=== PATIENT | female | born 1970 | race Caucasian/White ===

== ENCOUNTER → 2017-04-27 12:17 | Outpatient (CLI) | payer BC, SELFPAY ==
--- NOTE | 2017-04-27 12:18 | US_ITS ---
STUDY: RENAL ULTRASOUND - COMPLETE REASON FOR EXAM: Female, 47 years old. Right flank pain. TECHNIQUE: Ultrasound evaluation of the kidneys was performed with real-time and static stephenson-scale imaging. COMPARISON: None. FINDINGS: RIGHT KIDNEY: Normal location of the right kidney, which is normal in size. The right kidney measures 10.5 x 4.8 x 5.4 cm. There is a normal cortex of the right kidney. The renal cortex measures 1.6 cm. There is no right renal mass or cyst. There are no right renal calculi. There is no right hydronephrosis. DISTAL RIGHT URETER: There is non-visualization of the distal right ureter. There is no demonstrated right ureterovesical junction calculus. There is no demonstrated right ureteral jet. LEFT KIDNEY: Normal location of the left kidney, which is normal in size. The left kidney measures 10.8 x 4.7 x 6.0 cm. There is a normal cortex of the left kidney. The renal cortex measures 1.5 cm. There is no left renal mass or cyst. There are no left renal calculi. There is no left hydronephrosis. DISTAL LEFT URETER: There is non-visualization of the distal left ureter. There is no demonstrated left ureterovesical junction calculus. There is no demonstrated left ureteral jet. BLADDER: The urinary bladder has a volume of 116 ml. There is a normal wall thickness of the distended urinary bladder. There is no demonstrated mass within the urinary bladder. There are no demonstrated bladder calculi. US/Kidney and Bladder IMPRESSION: Normal ultrasound of the kidneys and urinary bladder. Electronically Signed: Lenard Bose MD at 15:50 EST , Service support ,
== END ==
PROVIDERS: Family Provider Internal Medicine; PCP Internal Medicine; Visit Provider Internal Medicine
DX: R10.9 Unspecified abdominal pain (principal)
CPT/HCPCS: 76770

== ENCOUNTER → 2017-07-08 08:21 | Outpatient (CLI) | payer BC, SELFPAY ==
--- NOTE | 2017-07-08 08:24 | US_ITS ---
STUDY: ABDOMINAL ULTRASOUND - RIGHT UPPER QUADRANT REASON FOR VISIT: Female, 47 years old. Vertebral quadrant pain for 2 years, worsened in last 3 months. TECHNIQUE: Ultrasound evaluation of the right upper quadrant was performed with real-time and static rosales-scale imaging. TECHNICAL QUALITY: Adequate. COMPARISON: Bilateral renal ultrasound April 27, 2017; right upper quadrant ultrasound January 16, 2014. FINDINGS: Liver: The liver measures 15.7 cm. There is increased echogenicity consistent with fatty infiltration. The bile ducts are within normal limits. There is hepatic color flow. The direction of portal flow is hepatopetal. There is no demonstrated mass lesion. Gallbladder: Normal distended gallbladder. The gallbladder wall measures 2.6 mm. There is a negative sonographic Ann's sign. There is no pericholecystic fluid. There are no gallstones. Common Bile Duct (C.B.D.): The common bile duct measures 4.3 mm. Pancreas: Normal size of the head, body and tail of the pancreas. There is increased echogenicity of the pancreas. There is no demonstrated pancreatic mass or cyst. Right Kidney: Normal size of the right kidney. The right kidney measures 10.5 x 5.0 x 4.4 cm. Normal renal cortex. The right cortex measures 1.5 cm. There is no demonstrated renal mass or cyst. 3 mm hyperechogenicity at the upper pole may be a nonobstructing stone, although there is no posterior acoustic shadowing. There is no right hydronephrosis. US/Abdomen Limited IMPRESSION: 1. Stable fatty infiltration of the liver and pancreas. 2. No gallstones or signs of cholecystitis. 3. Possible 3 mm nonobstructing stone versus hyperechogenicity of other etiology at the upper pole of the right kidney. No right hydronephrosis. Electronically Signed: Ant Roper MD at 16:15 EDT , Service support ,
== END ==
PROVIDERS: Family Provider Internal Medicine; PCP Internal Medicine; Visit Provider Family Medicine
DX: R10.11 Right upper quadrant pain (principal)
CPT/HCPCS: 76705

== ENCOUNTER → 2019-01-12 15:58 | Outpatient (CLI) | payer OTHER, SELFPAY ==
[2019-01-12 17:59] LABS: Estradiol 34.1 pg/mL; Free T3 2.3 pg/mL (2.18-3.98); T4 Free Direct 0.77 ng/dL (0.76-1.46); Thyroid Stim Hormone (TSH) 1.73 uIU/mL (0.358-3.74)
[2019-01-12 18:01] LABS: Progesterone Level 0.27 ng/mL (See Comment)
[2019-01-15 16:24] LABS: DHEA Sulfate 229.2 ug/dL (41.2-243.7)
== END ==
PROVIDERS: Family Provider Family Medicine; PCP Family Medicine; Referring Provider Specialist; Visit Provider Specialist
DX: N95.1 Menopausal and female climacteric states (principal); R53.81 Other malaise; E03.8 Other specified hypothyroidism
CPT/HCPCS: 36415; 82627; 82670; 84144; 84403; 84439; 84443; 84481; 82626

== ENCOUNTER → 2019-03-01 08:18 | Outpatient (CLI) | payer OTHER, SELFPAY ==
--- NOTE | 2019-03-01 08:23 | US_ITS ---
HISTORY: RT SIDED PAIN STEATOSIS TECHNIQUE: Moreno scale and color doppler imaging was performed of the pancreas, liver, and gallbladder. COMPARISON: Previous right upper quadrant ultrasound is from July 08, 2017. An additional right upper quadrant ultrasound is from January 16, 2014 FINDINGS: # of images incl. paperwork: 133 The liver is enlarged and coarse in echotexture consistent with hepatic steatosis. The liver is measured at 17 cm in craniocaudal dimensions. No gallstones, gallbladder wall thickening or biliary dilatation. Gallbladder wall measures 2 mm. Common bile duct measures 4 mm. No tenderness upon insonation the gallbladder. Visualized pancreas is normal in appearance. Right kidney is normal in size. An echogenic shadowing structure within the right kidney may be a 3 x 3 mm nonobstructing nephrolith. Visualized abdominal aorta has normal caliber. IVC is patent. Hepatopedal flow is present within the central portal vein. US/Abdomen Limited IMPRESSION: Normal Right upper quadrant ultrasound. at 2123 Reported and signed by: Darrell Resendiz MD Electronically Signed: Darrell Resendiz MD at 21:28 EST Tel , Service support ,
== END ==
PROVIDERS: Family Provider Family Medicine; PCP Family Medicine
DX: K76.0 Fatty (change of) liver, not elsewhere classified (principal); R10.11 Right upper quadrant pain
CPT/HCPCS: 76705

== ENCOUNTER → 2019-05-02 10:51 | Outpatient (CLI) | payer OTHER, SELFPAY ==
[2019-05-02 12:19] LABS: Absolute Lymphocyte Count 1.38 X10^3/uL (0.83-4.51); Absolute Neutrophil Count 1.5 X10^3/uL (2.0-7.7); Basophil# 0.04 X10^3/uL; Basophil% 1.1 % (0-1); Eosinophil# 0.09 X10^3/uL; Eosinophils% 2.5 % (0-5); Hematocrit 41.2 % (37-47); Hemoglobin 13.8 g/dL (12.0-15.0); Lymphocyte # 1.38 X10^3/ul (4.0); Lymphocyte % 39.1 % (19-41); Mean Corp Hgb Conc 33.5 g/dL (32-36); Mean Corpuscular Hgb 33.4 pg (27.0-32.0); Mean Corpuscular Volume 99.8 fL (81-99); Mean Platelet Vol. 9.7 fl (6.2-12.0); Monocyte# 0.54 X10^3/uL; Monocyte% 15.3 % (0-10); NRBC Flagged by Analyzer 0 % (0-5); Neutrophil # 1.47 X10^3/uL (2.7-7.7); Neutrophil % 41.7 % (47-70); Platelet Count 232 K/mm3 (150-450); RBC Distribution Width SD 44.3 fl (35.1-43.9); Red Blood Count 4.13 M/mm3 (4.2-5.4); White Blood Count 3.5 K/mm3 (4.4-11.0)
[2019-05-02 12:32] LABS: Prothrombin Time (Protime)PT. 13.1 SECONDS (11.7-14.9)
[2019-05-02 12:39] LABS: ALB/GLOB Ratio 1.1 RATIO (0.9-2.4); AST(SGOT) 60 U/L (15-37); Alanine Aminotransfer ALT/SGPT 94 U/L (13-56); Alkaline Phosphatase 55 U/L (45-117); Amylase 35 U/L (25-115); Anion Gap 6 (5-15); BUN 11 mg/dL (7-18); BUN/Creat Ratio 14.2 RATIO (10-20); Calcium,Total 9.2 mg/dL (8.5-10.1); Chloride 99 mmol/L (98-107); Creatinine, Serum 0.77 mg/dL (0.55-1.02); EST Glomerular Filtration Rate 84 mL/min (>60); Est Glom Filt Rate - Afr Amer 102 mL/min (>60); Estradiol 25.7 pg/mL; Globulin 3.8 g/dL (2.2-4.2); Glucose 108 mg/dL (74-106); Lipase 80 U/L (73-393); Potassium 3.9 mmol/L (3.5-5.1); Protein, Total 7.8 g/dL (6.4-8.2); Sodium Level 135 mmol/L (136-145)
[2019-05-02 12:42] LABS: Progesterone Level 0.29 ng/mL (See Comment); Vitamin D,25 Hydroxy 34.1 ng/mL
== END ==
PROVIDERS: PCP Family Medicine; Referring Provider Specialist; Visit Provider Specialist
DX: R10.11 Right upper quadrant pain (principal); K76.0 Fatty (change of) liver, not elsewhere classified; N95.1 Menopausal and female climacteric states; E55.9 Vitamin D deficiency, unspecified
CPT/HCPCS: 36415; 80053; 82150; 82306; 82670; 83690; 84144; 84403; 85025; 85610